=== PATIENT | male | born 1970 | race Caucasian/White ===

== ENCOUNTER 2024-08-01 20:51 | Inpatient (IN) | payer MEDICAID ==
[~2024-08-01] VITALS: Ht 172.7 cm; Wt 95.0 kg
[2024-08-01] MEDS ORDERED: NO HOME MEDS (21:05)
[2024-08-01 21:19] LABS: BASOPHILS % (AUTO) 0.2 % (0-1); EOSINOPHILS % (AUTO) 0 % (0-6); HEMATOCRIT 35.1 % (42.0-52.0); LYMPHOCYTES # (AUTO) 0.8 X10'3 (1.1-4.8); LYMPHOCYTES % (AUTO) 3.7 % (21-51); MEAN CORPUSCULAR HEMOGLOBIN 27.3 PG (27.0-31.0); MEAN CORPUSCULAR HGB CONC 34.2 g/dL (33.0-36.5); MEAN CORPUSCULAR VOLUME 79.8 FL (78-98); MEAN PLATELET VOLUME 7.6 FL (7.4-10.4); MONOCYTES % (AUTO) 9.5 % (2-12); NEUTROPHILS # (AUTO) 18.5 X10'3 (1.8-7.7); NEUTROPHILS % (AUTO) 86.6 % (42-75); PLATELET COUNT 458 X10'3 (140-440); RED CELL DISTRIBUTION WIDTH 13.7 % (11.5-14.5); WHITE BLOOD COUNT 21.4 X10'3 (4.5-11.0)
[2024-08-01] MEDS ORDERED: vancomycin inj 1,000 MG in normal saline 250ml IV soln 250 ML IV ONE (21:25)
[2024-08-01] MEDS: ringers solution, lactated 1000ml IV soln IV ONE (21:33)
[2024-08-01] MEDS: vancomycin/NS 1 GM ADD-VANTAGE 250 ML IV ONE (21:33)
[2024-08-01 21:35] LABS: ABG BASE EXCESS -3.7 mmol/L (-2.0-3.0); ABG HCO3 18.4 mmol/L (21.0-28.0); ABG PH (T) 7.497 (7.350-7.450); ABG PO2 (T) 59.7 mmHg (83.0-108.0); FCOHb 0.4 % (0.5-1.5); FMetHb 0.3 % (0.0-1.5); FO2Hb 92.3 % (94.0-98.0); MODE ROOM AIR; TOTAL HEMOGLOBIN 11.7 G/dl (13.5-17.5)
[2024-08-01] MEDS: normal saline 1000ML IV soln IVB ONE (21:43)
[2024-08-01 21:51] LABS: ALANINE AMINOTRANSFERASE 27 U/L (12-78); ALBUMIN/GLOBULIN RATIO 0.4 (1.1-1.5); ALKALINE PHOSPHATASE 131 IU/L (46-116); ANION GAP 9 (8-16); ASPARTATE AMINO TRANSFERASE 24 U/L (10-37); BILIRUBIN,TOTAL 0.9 MG/DL (0.1-1.0); BLOOD UREA NITROGEN 41 MG/DL (7-18); BUN/CREATININE RATIO 25.6 (10.0-20.0); CALCIUM 8.1 MG/DL (8.5-10.1); CHLORIDE 92 MMOL/L (99-107); POTASSIUM 4.2 MMOL/L (3.5-5.1); PRO BRAIN NATRIURETIC PEPTIDE 1273 PG/ML (0-125); SODIUM 125 MMOL/L (135-145); TOTAL CARBON DIOXIDE 23.9 MMOL/L (24-32); TOTAL PROTEIN 7.5 G/DL (6.4-8.2); eCRCL 52 ML/MIN; eGFR 46 ML/MIN
[2024-08-01 22:11] LABS: GLUCOSE 642 MG/DL (70-104)
[2024-08-01 22:25] LABS: BILIRUBIN,URINE NEGATIVE (Neg); CLARITY,URINE CLOUDY (Clear); COLOR,URINE YELLOW (Yellow); GLUCOSE, URINE >=1000 mg/dl (Neg); KETONES,URINE TRACE mg/dl (Neg); LEUKOCYTE ESTERASE ,URINE SMALL (Neg); NITRITES, URINE NEGATIVE (Neg); OCCULT BLOOD,URINE MODERATE (Neg); PH,URINE 5.5 (4.8-8.0); PROTEIN,URINE TRACE mg/dl (Neg); UROBILINOGEN,URINE 0.2 E.U/dL (0.2-1.0)
[2024-08-01 22:27] LABS: UA COLLECTION TYPE URINAL
[2024-08-01] MEDS ORDERED: iohexol 300mg/ml 100ml inj. ONE (22:28)
[2024-08-01 22:36] LABS: BACTERIA,URINE 4+ /HPF (Neg); SQUAMOUS EPITHELIAL CELL,UR FEW /LPF (FEW); WBC,URINE 50-100 /HPF (0-4); YEAST MANY /HPF (NEGATIVE)
[2024-08-01 23:39] LABS: OSMOLALITY 310 MOSM/K (280-300)
[2024-08-02] MEDS ORDERED: magnesium hydroxide 30ml (MOM) UD suspension PO PRN
[2024-08-02] MEDS ORDERED: magnesium sulf-water 4G/100mL 100 ML IV PRN
[2024-08-02] MEDS ORDERED: magnesium Cl slow-release 64mg tablet PO PRN
[2024-08-02] MEDS ORDERED: morphine 2 MG/ML inj. syringe IV PRN ×2
[2024-08-02] MEDS ORDERED: potassium Cl 40MEQ/1/2NS 520ml 520 ML IV PRN
[2024-08-02] MEDS ORDERED: magnesium sulf-water 2g/50mL 50 ML IV PRN
[2024-08-02] MEDS ORDERED: potassium Cl 20 mEq SR tablet PO PRN
[2024-08-02] MEDS: CefTRIAXone/D5W-Rocephin 1gm 50 ML IV ONE (00:03)
[2024-08-02] MEDS: normal saline 1000ml 1,000 ML IV SCH (00:10)
[2024-08-02] MEDS: acetaminophen 325mg tablet PO PRN (01:18)
[2024-08-02 01:55] LABS: % IRON SATURATION 7 % (11-46); ACETONE SMALL (NEGATIVE); IRON 9 UG/DL (53-167); TOTAL IRON BINDING CAPACITY 137 UG/DL (259-388)
[2024-08-02] MEDS: normal saline 1000ml 1,000 ML IV ONE (02:17)
[2024-08-02] MEDS: insulin regular, human 10 units/0.1 ml syringe IV ONE (02:18)
[2024-08-02 02:32] LABS: C-REACTIVE PROTEIN 34.28 MG/DL (0.0-0.5); FERRITIN 1363 NG/ML (26-388)
[2024-08-02 02:33] LABS: ETHANOL < 10 MG/DL (<10)
[2024-08-02 02:45] LABS: BASOPHILS % (AUTO) 0.1 % (0-1); EOSINOPHILS % (AUTO) 0 % (0-6); HEMATOCRIT 29.4 % (42.0-52.0); HEMOGLOBIN 10.2 g/dl (14.0-17.9); LYMPHOCYTES # (AUTO) 0.6 X10'3 (1.1-4.8); LYMPHOCYTES % (AUTO) 3.5 % (21-51); MEAN CORPUSCULAR HEMOGLOBIN 27.5 PG (27.0-31.0); MEAN CORPUSCULAR HGB CONC 34.7 g/dL (33.0-36.5); MEAN CORPUSCULAR VOLUME 79.3 FL (78-98); MEAN PLATELET VOLUME 7.7 FL (7.4-10.4); MONOCYTES # (AUTO) 0.5 X10'3 (0-0.9); MONOCYTES % (AUTO) 3.1 % (2-12); NEUTROPHILS # (AUTO) 15.6 X10'3 (1.8-7.7); NEUTROPHILS % (AUTO) 93.3 % (42-75); PLATELET COUNT 350 X10'3 (140-440); RED BLOOD COUNT 3.71 X10'6 (4.70-6.10); RED CELL DISTRIBUTION WIDTH 13.8 % (11.5-14.5); WHITE BLOOD COUNT 16.7 X10'3 (4.5-11.0)
[2024-08-02 02:53] LABS: ABG BASE EXCESS -2.7 mmol/L (-2.0-3.0); ABG HCO3 20.2 mmol/L (21.0-28.0); ABG OXYGEN SATURATION 94.8 % (94.0-98.0); ABG PCO2 (T) 28.6 mmHg (35.0-48.0); ABG PH (T) 7.466 (7.350-7.450); ABG PO2 (T) 72.3 mmHg (83.0-108.0); ALLEN'S TEST POSITIVE; FCOHb 0.3 % (0.5-1.5); FHHb 5.2 % (0.0-5.0); FMetHb 0.3 % (0.0-1.5); FO2Hb 94.2 % (94.0-98.0); MODE ROOM AIR; TOTAL HEMOGLOBIN 10.4 G/dl (13.5-17.5)
[2024-08-02 02:54] LABS: HEMOGLOBIN A1C > 12.0 % (4.5-6.2)
[2024-08-02 03:09] LABS: ALBUMIN 1.7 G/DL (3.4-5.0); ALBUMIN/GLOBULIN RATIO 0.4 (1.1-1.5); ANION GAP 10 (8-16); ASPARTATE AMINO TRANSFERASE 23 U/L (10-37); BILIRUBIN,TOTAL 0.7 MG/DL (0.1-1.0); BLOOD UREA NITROGEN 43 MG/DL (7-18); BUN/CREATININE RATIO 28.7 (10.0-20.0); CALCIUM 7.6 MG/DL (8.5-10.1); CHLORIDE 97 MMOL/L (99-107); MAGNESIUM 1.6 MG/DL (1.5-2.4); POTASSIUM 3.4 MMOL/L (3.5-5.1); PRO BRAIN NATRIURETIC PEPTIDE 1587 PG/ML (0-125); SODIUM 130 MMOL/L (135-145); TOTAL CARBON DIOXIDE 23.5 MMOL/L (24-32); TOTAL PROTEIN 6.3 G/DL (6.4-8.2); eCRCL 56 ML/MIN; eGFR 49 ML/MIN
[2024-08-02 03:10] LABS: ALANINE AMINOTRANSFERASE 24 U/L (12-78); ALKALINE PHOSPHATASE 104 IU/L (46-116); HDL CHOLESTEROL 22 MG/DL (35-60); LDL CHOLESTEROL 18 MG/DL (50-100); TRIGLYCERIDES 28 MG/DL (20-135)
[2024-08-02 03:11] LABS: CHOLESTEROL < 50 MG/DL (0-200)
[2024-08-02 03:18] LABS: GLUCOSE 435 MG/DL (70-104)
[2024-08-02] MEDS: potassium Cl 20 mEq SR tablet PO PRN (05:30)
[2024-08-02] MEDS: K and/or MAG REPLACEMENT MC SCH (08:00)
[2024-08-02] MEDS: docusate sod 100mg capsule PO SCH (08:00)
[2024-08-02] MEDS: INSULIN LISPRO 100 UNIT/ML INSULN.PEN MULTI-DOSE SQ SCH (08:01)
[2024-08-02] MEDS: heparin, porcine 5000 units/ml vial SQ SCH (08:01)
[2024-08-02] MEDS: vancomycin/NS 1 GM ADD-VANTAGE 250 ML IV SCH (08:01)
[2024-08-02] MEDS: piperacillin/tazo 3.375gm/50ml 50 ML IV SCH (08:01)
[2024-08-02 08:26] LABS: BILIRUBIN,URINE NEGATIVE (Neg); CLARITY,URINE CLOUDY (Clear); COLOR,URINE YELLOW (Yellow); GLUCOSE, URINE >=1000 mg/dl (Neg); KETONES,URINE TRACE mg/dl (Neg); LEUKOCYTE ESTERASE ,URINE SMALL (Neg); OCCULT BLOOD,URINE LARGE (Neg); PH,URINE 5.5 (4.8-8.0); PROTEIN,URINE 30 mg/dl (Neg); UROBILINOGEN,URINE 0.2 E.U/dL (0.2-1.0)
[2024-08-02 08:34] LABS: UA COLLECTION TYPE CLN CATCH MIDSTREAM
[2024-08-02 08:35] LABS: NITRITES, URINE NEGATIVE (Neg)
[2024-08-02 08:38] LABS: BACTERIA,URINE 2+ /HPF (Neg); WBC,URINE 50-100 /HPF (0-4)
[2024-08-02 08:39] LABS: SQUAMOUS EPITHELIAL CELL,UR FEW /LPF (FEW); YEAST MANY /HPF (NEGATIVE)
[2024-08-02 08:52] LABS: URINE AMPHETAMINE SCREEN POSITIVE (Neg); URINE BARBITUATE SCREEN NEGATIVE (Neg); URINE BENZODIAZEPINES SCREEN NEGATIVE (Neg); URINE CANNABINOID SCREEN NEGATIVE (Neg); URINE COCAINE SCREEN NEGATIVE (Neg); URINE METHADONE SCREEN NEGATIVE (Neg); URINE OPIATE SCREEN NEGATIVE (Neg); URINE PHENCYCLIDINE SCREEN NEGATIVE (Neg)
[2024-08-02] MEDS: LidoCAINE 2% Topical Jelly 11mL syringe (UROJET) TOP ONE (11:16)
[2024-08-02] MEDS: HYDROmorphone inj. 0.5 MG/0.5 ML DISP.SYRIN IV ONE (11:18)
[2024-08-02 15:35] VITALS: BP 115/76; PULSE 125; RESP 14; TEMP 97.3; O2SAT 91
[2024-08-02] MEDS: HYDROmorphone inj. 0.5 MG/0.5 ML DISP.SYRIN IV PRN (16:13)
[2024-08-02 18:00] VITALS: BP 115/76; PULSE 125; RESP 14; TEMP 97.3; O2SAT 91
[2024-08-02 20:00] VITALS: RESP 16; O2SAT 95
[2024-08-02 22:00] VITALS: BP 119/71; PULSE 132; RESP 16; TEMP 102.5; O2SAT 95
[2024-08-02] MEDS: insulin glargine (Lantus) pen - multi-dose SQ SCH (22:24)
[2024-08-02] MEDS: ringers solution, lacted 1,000 ML IV ONE (22:30)
[2024-08-02 23:50] VITALS: TEMP 103
[2024-08-03] VITALS (8 sets, daily range): BP systolic 82–113; BP diastolic 54–70; PULSE 95–102; RESP 14–18; TEMP 98–100.6; O2SAT 91–100
[2024-08-03] MEDS: acetaminophen 1,000mg/100ml IV 100 ML IV ONE (00:22)
[2024-08-03] MEDS: VANCOMYCIN LEVEL IV ONE (07:20)
[2024-08-03 08:13] LABS: BASOPHILS # (AUTO) 0.1 X10'3 (0-0.2); BASOPHILS % (AUTO) 0.4 % (0-1); EOSINOPHILS # (AUTO) 0.1 X10'3 (0-0.9); EOSINOPHILS % (AUTO) 0.4 % (0-6); HEMATOCRIT 25.2 % (42.0-52.0); HEMOGLOBIN 8.5 g/dl (14.0-17.9); LYMPHOCYTES # (AUTO) 1.4 X10'3 (1.1-4.8); MEAN CORPUSCULAR HEMOGLOBIN 27.1 PG (27.0-31.0); MEAN CORPUSCULAR HGB CONC 33.8 g/dL (33.0-36.5); MEAN CORPUSCULAR VOLUME 80.1 FL (78-98); MEAN PLATELET VOLUME 7.9 FL (7.4-10.4); MONOCYTES # (AUTO) 1.5 X10'3 (0-0.9); MONOCYTES % (AUTO) 11.7 % (2-12); NEUTROPHILS # (AUTO) 9.8 X10'3 (1.8-7.7); NEUTROPHILS % (AUTO) 76.5 % (42-75); PLATELET COUNT 355 X10'3 (140-440); RED BLOOD COUNT 3.15 X10'6 (4.70-6.10); RED CELL DISTRIBUTION WIDTH 14.1 % (11.5-14.5); WHITE BLOOD COUNT 12.8 X10'3 (4.5-11.0)
[2024-08-03 08:38] LABS: ALANINE AMINOTRANSFERASE 23 U/L (12-78); ALBUMIN 1.5 G/DL (3.4-5.0); ALBUMIN/GLOBULIN RATIO 0.3 (1.1-1.5); ALKALINE PHOSPHATASE 96 IU/L (46-116); ANION GAP 8 (8-16); ASPARTATE AMINO TRANSFERASE 33 U/L (10-37); BILIRUBIN,TOTAL 0.6 MG/DL (0.1-1.0); BLOOD UREA NITROGEN 46 MG/DL (7-18); BUN/CREATININE RATIO 27.4 (10.0-20.0); CALCIUM 7.7 MG/DL (8.5-10.1); CHLORIDE 104 MMOL/L (99-107); CREATININE 1.68 MG/DL (0.60-1.10); GLUCOSE 128 MG/DL (70-104); POTASSIUM 3.8 MMOL/L (3.5-5.1); SODIUM 135 MMOL/L (135-145); TOTAL CARBON DIOXIDE 22.9 MMOL/L (24-32); TOTAL PROTEIN 6.2 G/DL (6.4-8.2); VANCOMYCIN,TROUGH 18.6 ug/mL (10.0-20.0); eCRCL 50 ML/MIN; eGFR 43 ML/MIN
[2024-08-03] MEDS: INSULIN LISPRO 100 UNIT/ML INSULN.PEN MULTI-DOSE SQ SCH (09:00)
[2024-08-03] MEDS: FLU VACC TS2024-25(6MOS UP)/PF 45 MCG/0.5 ML SYRINGE IMVAC ONE (10:00)
[2024-08-03] MEDS: ringers solution, lacted 1,000 ML IV ONE (18:15)
[2024-08-03] MEDS: mag hydrox/Alum hydrox/simeth 30ml oral suspension PO PRN (19:24)
[2024-08-03] MEDS: normal saline 1000ml 1,000 ML IV ONE ×2 (19:25→19:48)
[2024-08-03] MEDS: Melatonin 3mg tablet PO ONE (21:50)
[2024-08-04] VITALS (26 sets, daily range): BP systolic 95–149; BP diastolic 58–89; PULSE 90–112; RESP 16–39; TEMP 98.7–101.4; O2SAT 93–100
[2024-08-04] MEDS: famotidine 20mg tablet PO ONE (05:27)
[2024-08-04 05:58] LABS: BASOPHILS % (AUTO) 0.1 % (0-1); EOSINOPHILS # (AUTO) 0.1 X10'3 (0-0.9); EOSINOPHILS % (AUTO) 0.4 % (0-6); HEMATOCRIT 25.6 % (42.0-52.0); HEMOGLOBIN 8.5 g/dl (14.0-17.9); LYMPHOCYTES # (AUTO) 1.7 X10'3 (1.1-4.8); LYMPHOCYTES % (AUTO) 10.1 % (21-51); MEAN CORPUSCULAR HEMOGLOBIN 26.6 PG (27.0-31.0); MEAN CORPUSCULAR HGB CONC 33.1 g/dL (33.0-36.5); MEAN CORPUSCULAR VOLUME 80.5 FL (78-98); MEAN PLATELET VOLUME 7.9 FL (7.4-10.4); MONOCYTES # (AUTO) 1.8 X10'3 (0-0.9); MONOCYTES % (AUTO) 10.3 % (2-12); NEUTROPHILS # (AUTO) 13.6 X10'3 (1.8-7.7); NEUTROPHILS % (AUTO) 79.1 % (42-75); PLATELET COUNT 415 X10'3 (140-440); RED BLOOD COUNT 3.18 X10'6 (4.70-6.10); RED CELL DISTRIBUTION WIDTH 14.5 % (11.5-14.5); WHITE BLOOD COUNT 17.2 X10'3 (4.5-11.0)
[2024-08-04 05:59] LABS: ALANINE AMINOTRANSFERASE 20 U/L (12-78); ALBUMIN 1.3 G/DL (3.4-5.0); ALBUMIN/GLOBULIN RATIO 0.3 (1.1-1.5); ALKALINE PHOSPHATASE 99 IU/L (46-116); ANION GAP 8 (8-16); ASPARTATE AMINO TRANSFERASE 27 U/L (10-37); BILIRUBIN,TOTAL 0.5 MG/DL (0.1-1.0); BLOOD UREA NITROGEN 36 MG/DL (7-18); BUN/CREATININE RATIO 27.1 (10.0-20.0); CALCIUM 7.5 MG/DL (8.5-10.1); CHLORIDE 107 MMOL/L (99-107); CREATININE 1.33 MG/DL (0.60-1.10); GLUCOSE 77 MG/DL (70-104); POTASSIUM 3.5 MMOL/L (3.5-5.1); SODIUM 136 MMOL/L (135-145); TOTAL PROTEIN 5.9 G/DL (6.4-8.2); eCRCL 63 ML/MIN; eGFR 56 ML/MIN
[2024-08-04 06:17] LABS: HBSAG SCREEN Negative (Negative); HEP B CORE AB, IGM Negative (Negative); HEP B CORE AB, TOT Negative (Negative); HEP B SURF AB Non Reactive (.)
[2024-08-04] MEDS ORDERED: BUPIVAcaine/PF 2.5mg/ml (0.25%) 10ml vial ONE (06:42)
[2024-08-04] MEDS ORDERED: bacitracin 15gm ointment TP ONE (06:42)
[2024-08-04] MEDS ORDERED: vancomycin 1,000mg inj ONE (06:42)
[2024-08-04] MEDS ORDERED: dextrose 50%-water 50ml dispensing syringe IV PRN (07:15)
[2024-08-04] MEDS ORDERED: glucagon, human recombinant 1mg kit SUBCUT PRN (07:15)
[2024-08-04] MEDS ORDERED: DEXTROSE 15 GM of carb/4 tabs (each vial/BOTTLE has 4 tablets) PO PRN (07:15)
[2024-08-04] MEDS: dextrose 50%-water 50ml dispensing syringe IV PRN (07:21)
[2024-08-04] MEDS: ferrous gluconate 324mg tablet PO SCH (08:00)
[2024-08-04] MEDS: ascorbic acid 500mg tablet PO SCH (08:00)
[2024-08-04] MEDS ORDERED: enalaprilat 1.25mg/ml 2ml vial IV PRN (08:15)
[2024-08-04] MEDS ORDERED: ringers solution, lacted 1,000 ML IV SCH (08:15)
[2024-08-04] MEDS ORDERED: meperidine/PF 25mg/ml syringe IV PRN ×3 (08:15)
[2024-08-04] MEDS ORDERED: morphine 2 MG/ML inj. syringe IV PRN (08:15)
[2024-08-04] MEDS ORDERED: ondansetron/PF 4mg/2ml inj IV PRN (08:15)
[2024-08-04] MEDS ORDERED: morphine 4 MG/ML inj SYRINge IV PRN (08:15)
[2024-08-04] MEDS ORDERED: proCHLORperazine 10 MG/2 ml inj IV PRN (08:15)
[2024-08-04] MEDS ORDERED: labetalol 20mg/4ml (5mg/ml) syringe IV PRN (08:15)
[2024-08-04] MEDS ORDERED: MIDAZolam 1 MG/ML 5ML VIAL ONE (08:18)
[2024-08-04] MEDS ORDERED: fentaNYL/PF 50MCG/1 ML 2ML syringe ONE (08:18)
[2024-08-04 08:19] LABS: C DIFF ANTIGEN NEGATIVE (NEGATIVE); C DIFF SPECIMEN=DIARRHEA? ACCEPTABLE; C DIFFICILE TOXINS A&B NEGATIVE (Neg)
[2024-08-04] MEDS ORDERED: meperidine/PF 100mg/ml syringe IV PRN ×2 (10:15→10:16)
[2024-08-04] MEDS: meperidine/PF 100mg/ml syringe IV PRN (10:22)
[2024-08-04] MEDS: DEXTROSE 15 GM of carb/4 tabs (each vial/BOTTLE has 4 tablets) PO PRN (18:02)
[2024-08-04] MEDS: LORazepam 0.5 MG tablet PO ONE (20:16)
[2024-08-04] MEDS: acetaminophen 1,000mg/100ml IV 100 ML IV ONE (20:24)
[2024-08-05] VITALS: BP 95/60; PULSE 90; RESP 16; TEMP 99.1; O2SAT 98
[2024-08-05 04:00] VITALS: BP 114/70; PULSE 91; RESP 20; TEMP 98; O2SAT 98
[2024-08-05 06:00] VITALS: BP 114/70; PULSE 94; RESP 16; TEMP 98.2; O2SAT 96
[2024-08-05 06:42] LABS: ALANINE AMINOTRANSFERASE 21 U/L (12-78); ALBUMIN 1.3 G/DL (3.4-5.0); ALBUMIN/GLOBULIN RATIO 0.3 (1.1-1.5); ALKALINE PHOSPHATASE 127 IU/L (46-116); ANION GAP 9 (8-16); ASPARTATE AMINO TRANSFERASE 21 U/L (10-37); BILIRUBIN,TOTAL 0.5 MG/DL (0.1-1.0); BLOOD UREA NITROGEN 28 MG/DL (7-18); BUN/CREATININE RATIO 20.7 (10.0-20.0); CALCIUM 7.5 MG/DL (8.5-10.1); CHLORIDE 107 MMOL/L (99-107); CREATININE 1.35 MG/DL (0.60-1.10); GLUCOSE 109 MG/DL (70-104); MAGNESIUM 1.9 MG/DL (1.5-2.4); POTASSIUM 3.1 MMOL/L (3.5-5.1); SODIUM 137 MMOL/L (135-145); TOTAL CARBON DIOXIDE 21.5 MMOL/L (24-32); TOTAL PROTEIN 5.8 G/DL (6.4-8.2); eCRCL 62 ML/MIN; eGFR 55 ML/MIN
[2024-08-05 06:53] LABS: BASOPHILS # (AUTO) 0.1 X10'3 (0-0.2); BASOPHILS % (AUTO) 0.3 % (0-1); EOSINOPHILS # (AUTO) 0.2 X10'3 (0-0.9); HEMATOCRIT 25.2 % (42.0-52.0); HEMOGLOBIN 8.3 g/dl (14.0-17.9); MEAN CORPUSCULAR HEMOGLOBIN 26.8 PG (27.0-31.0); MEAN CORPUSCULAR HGB CONC 32.9 g/dL (33.0-36.5); MEAN CORPUSCULAR VOLUME 81.4 FL (78-98); MEAN PLATELET VOLUME 7.8 FL (7.4-10.4); MONOCYTES # (AUTO) 1.7 X10'3 (0-0.9); MONOCYTES % (AUTO) 10.3 % (2-12); NEUTROPHILS # (AUTO) 12.8 X10'3 (1.8-7.7); NEUTROPHILS % (AUTO) 76.4 % (42-75); PLATELET COUNT 467 X10'3 (140-440); RED CELL DISTRIBUTION WIDTH 14.6 % (11.5-14.5); WHITE BLOOD COUNT 16.8 X10'3 (4.5-11.0)
[2024-08-05] MEDS ORDERED: potassium Cl 20 mEq SR tablet PO PRN (08:20)
[2024-08-05] MEDS ORDERED: potassium Cl 40MEQ/1/2NS 520ml 520 ML IV PRN (08:20)
[2024-08-05] MEDS: potassium Cl 20 mEq SR tablet PO PRN (09:30)
[2024-08-05 10:00] VITALS: BP 126/80; PULSE 105; RESP 13; TEMP 101.6; O2SAT 96
[2024-08-05] MEDS: HYDROcodone/acetaminophen 10/325mg tab PO STA (10:09)
[2024-08-05] MEDS: linezolid 600mg tablet PO SCH (11:29)
[2024-08-05] MEDS: INSULIN LISPRO 100 UNIT/ML INSULN.PEN MULTI-DOSE SQ SCH (13:00)
[2024-08-05 18:40] VITALS: BP 108/74; PULSE 88; RESP 18; TEMP 97.2; O2SAT 92
[2024-08-05] MEDS: HYDROcodone/acetaminophen 10/325mg tab PO PRN (20:44)
[2024-08-05] MEDS ORDERED: insulin glargine (Lantus) pen - multi-dose SQ SCH ×2 (21:00)
[2024-08-05 22:00] VITALS: BP 136/82; PULSE 110; RESP 24; TEMP 101; O2SAT 96
[2024-08-06] VITALS (8 sets, daily range): BP systolic 118–125; BP diastolic 67–87; PULSE 108–114; RESP 16–18; TEMP 98.7–101.8; O2SAT 92–97
[2024-08-06 06:15] LABS: BASOPHILS # (AUTO) 0.2 X10'3 (0-0.2); BASOPHILS % (AUTO) 1.2 % (0-1); EOSINOPHILS # (AUTO) 0.2 X10'3 (0-0.9); EOSINOPHILS % (AUTO) 1.1 % (0-6); HEMATOCRIT 23.5 % (42.0-52.0); HEMOGLOBIN 7.7 g/dl (14.0-17.9); LYMPHOCYTES # (AUTO) 2.7 X10'3 (1.1-4.8); MEAN CORPUSCULAR HEMOGLOBIN 26.5 PG (27.0-31.0); MEAN CORPUSCULAR HGB CONC 32.6 g/dL (33.0-36.5); MEAN CORPUSCULAR VOLUME 81.1 FL (78-98); MEAN PLATELET VOLUME 7.5 FL (7.4-10.4); MONOCYTES # (AUTO) 1.8 X10'3 (0-0.9); MONOCYTES % (AUTO) 10.2 % (2-12); NEUTROPHILS # (AUTO) 13.1 X10'3 (1.8-7.7); NEUTROPHILS % (AUTO) 72.5 % (42-75); PLATELET COUNT 592 X10'3 (140-440); RED CELL DISTRIBUTION WIDTH 14.5 % (11.5-14.5); WHITE BLOOD COUNT 18.1 X10'3 (4.5-11.0)
[2024-08-06 06:28] LABS: ALANINE AMINOTRANSFERASE 17 U/L (12-78); ALBUMIN 1.3 G/DL (3.4-5.0); ALBUMIN/GLOBULIN RATIO 0.3 (1.1-1.5); ALKALINE PHOSPHATASE 145 IU/L (46-116); ANION GAP 8 (8-16); ASPARTATE AMINO TRANSFERASE 20 U/L (10-37); BILIRUBIN,TOTAL 0.4 MG/DL (0.1-1.0); BLOOD UREA NITROGEN 26 MG/DL (7-18); BUN/CREATININE RATIO 23.4 (10.0-20.0); CALCIUM 7.9 MG/DL (8.5-10.1); CHLORIDE 108 MMOL/L (99-107); CREATININE 1.11 MG/DL (0.60-1.10); GLUCOSE 90 MG/DL (70-104); SODIUM 139 MMOL/L (135-145); TOTAL CARBON DIOXIDE 22.9 MMOL/L (24-32); TOTAL PROTEIN 6.4 G/DL (6.4-8.2); eCRCL 75 ML/MIN; eGFR 70 ML/MIN
[2024-08-06] MEDS: CefTRIAXone 2gm/D5W 50ml BAG 50 ML IV SCH (11:24)
[2024-08-06 17:19] LABS: OCCULT BLOOD STOOL POSITIVE (Neg)
[2024-08-06] MEDS: lactose-reduced food (Ensure Enlive) - 237ml bottle PO SCH (18:00)
[2024-08-06] MEDS: pantoprazole 40 MG vial IV SCH (19:07)
[2024-08-06 23:11] LABS: HEMOGLOBIN 7.1 g/dl (14.0-17.9)
[2024-08-06 23:12] LABS: HEMATOCRIT 22.2 % (42.0-52.0); MEAN CORPUSCULAR HGB CONC 32.1 g/dL (33.0-36.5); MEAN CORPUSCULAR VOLUME 81.1 FL (78-98); MEAN PLATELET VOLUME 7.6 FL (7.4-10.4); PLATELET COUNT 681 X10'3 (140-440); RED BLOOD COUNT 2.74 X10'6 (4.70-6.10); RED CELL DISTRIBUTION WIDTH 14.6 % (11.5-14.5); WHITE BLOOD COUNT 22.8 X10'3 (4.5-11.0)
[2024-08-07] VITALS (9 sets, daily range): BP systolic 116–127; BP diastolic 60–79; PULSE 70–125; RESP 16–25; TEMP 98.2–102; O2SAT 93–97
[2024-08-07] MEDS: diphenhydrAMINE 25mg capsule PO ONE (03:04)
[2024-08-07 08:07] LABS: HEMOGLOBIN 7.9 g/dl (14.0-17.9); MEAN CORPUSCULAR HEMOGLOBIN 26.8 PG (27.0-31.0); MEAN CORPUSCULAR HGB CONC 32.7 g/dL (33.0-36.5); MEAN CORPUSCULAR VOLUME 81.7 FL (78-98); MEAN PLATELET VOLUME 6.8 FL (7.4-10.4); PLATELET COUNT 734 X10'3 (140-440); RED BLOOD COUNT 2.94 X10'6 (4.70-6.10); RED CELL DISTRIBUTION WIDTH 14.9 % (11.5-14.5)
[2024-08-07 09:16] LABS: ALANINE AMINOTRANSFERASE 16 U/L (12-78); ALBUMIN 1.2 G/DL (3.4-5.0); ALBUMIN/GLOBULIN RATIO 0.3 (1.1-1.5); ALKALINE PHOSPHATASE 132 IU/L (46-116); ANION GAP 10 (8-16); ASPARTATE AMINO TRANSFERASE 15 U/L (10-37); BILIRUBIN,TOTAL 0.2 MG/DL (0.1-1.0); BLOOD UREA NITROGEN 25 MG/DL (7-18); BUN/CREATININE RATIO 21.9 (10.0-20.0); CALCIUM 7.9 MG/DL (8.5-10.1); CHLORIDE 108 MMOL/L (99-107); CREATININE 1.14 MG/DL (0.60-1.10); GLUCOSE 131 MG/DL (70-104); POTASSIUM 3.9 MMOL/L (3.5-5.1); SODIUM 138 MMOL/L (135-145); TOTAL CARBON DIOXIDE 19.9 MMOL/L (24-32); eCRCL 73 ML/MIN; eGFR 67 ML/MIN
[2024-08-07] MEDS: HYDROmorphone inj. 0.5 MG/0.5 ML DISP.SYRIN IV PRN (09:17)
[2024-08-07] MEDS: pantoprazole 40MG/NS 100ML BAG 100 ML IV SCH (12:34)
[2024-08-07] MEDS: INSULIN LISPRO 100 UNIT/ML INSULN.PEN MULTI-DOSE SQ ONE (18:54)
[2024-08-07 19:29] LABS: HEMATOCRIT 24.6 % (42.0-52.0); MEAN CORPUSCULAR HEMOGLOBIN 26.5 PG (27.0-31.0); MEAN CORPUSCULAR HGB CONC 32.4 g/dL (33.0-36.5); MEAN CORPUSCULAR VOLUME 81.6 FL (78-98); PLATELET COUNT 791 X10'3 (140-440); RED BLOOD COUNT 3.02 X10'6 (4.70-6.10); RED CELL DISTRIBUTION WIDTH 14.9 % (11.5-14.5); WHITE BLOOD COUNT 19.4 X10'3 (4.5-11.0)
[2024-08-07] MEDS: insulin glargine (Lantus) pen - multi-dose SQ SCH (21:47)
[2024-08-08] VITALS (10 sets, daily range): BP systolic 112–129; BP diastolic 75–85; PULSE 101–115; RESP 16–29; TEMP 97.7–99.4; O2SAT 90–99
[2024-08-08 06:02] LABS: BASOPHILS # (AUTO) 0.1 X10'3 (0-0.2); BASOPHILS % (AUTO) 0.3 % (0-1); EOSINOPHILS # (AUTO) 0.3 X10'3 (0-0.9); EOSINOPHILS % (AUTO) 1.4 % (0-6); HEMATOCRIT 23.1 % (42.0-52.0); HEMOGLOBIN 7.7 g/dl (14.0-17.9); LYMPHOCYTES # (AUTO) 2.9 X10'3 (1.1-4.8); MEAN CORPUSCULAR HEMOGLOBIN 27.4 PG (27.0-31.0); MEAN CORPUSCULAR HGB CONC 33.4 g/dL (33.0-36.5); MEAN CORPUSCULAR VOLUME 81.8 FL (78-98); MEAN PLATELET VOLUME 6.9 FL (7.4-10.4); MONOCYTES # (AUTO) 2.3 X10'3 (0-0.9); MONOCYTES % (AUTO) 11.9 % (2-12); NEUTROPHILS # (AUTO) 13.6 X10'3 (1.8-7.7); NEUTROPHILS % (AUTO) 71.4 % (42-75); PLATELET COUNT 856 X10'3 (140-440); RED BLOOD COUNT 2.83 X10'6 (4.70-6.10)
[2024-08-08 06:34] LABS: ALANINE AMINOTRANSFERASE 17 U/L (12-78); ALBUMIN 1.2 G/DL (3.4-5.0); ALBUMIN/GLOBULIN RATIO 0.3 (1.1-1.5); ALKALINE PHOSPHATASE 143 IU/L (46-116); ANION GAP 6 (8-16); ASPARTATE AMINO TRANSFERASE 12 U/L (10-37); BILIRUBIN,TOTAL 0.3 MG/DL (0.1-1.0); BLOOD UREA NITROGEN 14 MG/DL (7-18); BUN/CREATININE RATIO 13.1 (10.0-20.0); CALCIUM 7.7 MG/DL (8.5-10.1); CHLORIDE 109 MMOL/L (99-107); CREATININE 1.07 MG/DL (0.60-1.10); GLUCOSE 272 MG/DL (70-104); POTASSIUM 3.6 MMOL/L (3.5-5.1); SODIUM 140 MMOL/L (135-145); TOTAL CARBON DIOXIDE 24.6 MMOL/L (24-32); eCRCL 78 ML/MIN; eGFR 73 ML/MIN
[2024-08-08] MEDS: ondansetron/PF 4mg/2ml inj IV PRN (11:21)
[2024-08-08] MEDS ORDERED: LIDOcaine 2% Viscous 15ml cup ONE (12:01)
[2024-08-08] MEDS ORDERED: MIDAZolam 1 MG/ML 5ML VIAL ONE (12:29)
[2024-08-08] MEDS ORDERED: fentaNYL/PF 50MCG/1 ML 2ML syringe ONE (12:29)
[2024-08-09 06:00] VITALS: BP 122/69; PULSE 106; RESP 18; TEMP 98.2; O2SAT 98
[2024-08-09 06:15] LABS: BASOPHILS # (AUTO) 0.1 X10'3 (0-0.2); BASOPHILS % (AUTO) 0.4 % (0-1); EOSINOPHILS # (AUTO) 0.2 X10'3 (0-0.9); HEMOGLOBIN 9.1 g/dl (14.0-17.9); MEAN CORPUSCULAR VOLUME 84.3 FL (78-98)
[2024-08-09 06:17] LABS: EOSINOPHILS % (AUTO) 0.9 % (0-6); HEMATOCRIT 28.5 % (42.0-52.0); LYMPHOCYTES % (AUTO) 17.7 % (21-51); MONOCYTES # (AUTO) 1.9 X10'3 (0-0.9); MONOCYTES % (AUTO) 8.5 % (2-12); NEUTROPHILS # (AUTO) 16.4 X10'3 (1.8-7.7); NEUTROPHILS % (AUTO) 72.5 % (42-75); PLATELET COUNT 959 X10'3 (140-440); RED BLOOD COUNT 3.38 X10'6 (4.70-6.10); RED CELL DISTRIBUTION WIDTH 15.2 % (11.5-14.5); WHITE BLOOD COUNT 22.6 X10'3 (4.5-11.0)
[2024-08-09 06:25] LABS: ALKALINE PHOSPHATASE 116 IU/L (46-116); ANION GAP 9 (8-16); BILIRUBIN,TOTAL 0.3 MG/DL (0.1-1.0); BLOOD UREA NITROGEN 10 MG/DL (7-18); BUN/CREATININE RATIO 10.8 (10.0-20.0); CALCIUM 7.8 MG/DL (8.5-10.1); CHLORIDE 108 MMOL/L (99-107); CREATININE 0.93 MG/DL (0.60-1.10); GLUCOSE 165 MG/DL (70-104); POTASSIUM 3.6 MMOL/L (3.5-5.1); SODIUM 139 MMOL/L (135-145); TOTAL PROTEIN 6.4 G/DL (6.4-8.2); eCRCL 90 ML/MIN; eGFR 85 ML/MIN
[2024-08-09 06:51] LABS: ALANINE AMINOTRANSFERASE 11 U/L (12-78); ALBUMIN 1.3 G/DL (3.4-5.0); ALBUMIN/GLOBULIN RATIO 0.3 (1.1-1.5); ASPARTATE AMINO TRANSFERASE 14 U/L (10-37)
[2024-08-09 08:54] VITALS: RESP 18
[2024-08-09 10:00] VITALS: BP 122/69; PULSE 106; RESP 18; TEMP 97.4; O2SAT 99
[2024-08-09 13:00] VITALS: BP 105/73; PULSE 107; RESP 20; TEMP 98.7; O2SAT 94
[2024-08-09] MEDS: ceFAZolin 2gm in dextrose, iso 50 ML IV SCH (15:58)
[2024-08-09] MEDS: ringers solution, lacted 1,000 ML IV ONE (15:59)
[2024-08-09 16:15] LABS: APTT 28 SECONDS (22-32); INR 1.1 INR; PROTHROMBIN TIME 11.5 SECONDS (9.0-12.0)
[2024-08-09] MEDS: NUT.TX.IMPAIRED DIGEST FXN (Ensure Clear) 237 ML PO SCH (18:00)
[2024-08-09] MEDS: pantoprazole 40 MG vial IV SCH (21:55)
[2024-08-10] VITALS (23 sets, daily range): BP systolic 90–124; BP diastolic 51–74; PULSE 74–127; RESP 10–31; TEMP 97.3–99.9; O2SAT 87–99
[2024-08-10 04:04] LABS: EOSINOPHILS # (AUTO) 0.3 X10'3 (0-0.9); MONOCYTES # (AUTO) 1.6 X10'3 (0-0.9); MONOCYTES % (AUTO) 7.2 % (2-12)
[2024-08-10 04:06] LABS: BASOPHILS # (AUTO) 0.1 X10'3 (0-0.2); BASOPHILS % (AUTO) 0.3 % (0-1); EOSINOPHILS % (AUTO) 1.2 % (0-6); HEMATOCRIT 23.7 % (42.0-52.0); HEMOGLOBIN 7.9 g/dl (14.0-17.9); LYMPHOCYTES # (AUTO) 3.3 X10'3 (1.1-4.8); LYMPHOCYTES % (AUTO) 15.1 % (21-51); MEAN CORPUSCULAR HEMOGLOBIN 27.3 PG (27.0-31.0); MEAN CORPUSCULAR HGB CONC 33.3 g/dL (33.0-36.5); MEAN CORPUSCULAR VOLUME 82.2 FL (78-98); MEAN PLATELET VOLUME 6.7 FL (7.4-10.4); NEUTROPHILS # (AUTO) 16.7 X10'3 (1.8-7.7); NEUTROPHILS % (AUTO) 76.2 % (42-75); RED BLOOD COUNT 2.89 X10'6 (4.70-6.10); RED CELL DISTRIBUTION WIDTH 15.2 % (11.5-14.5)
[2024-08-10 04:09] LABS: PLATELET COUNT 1032 X10'3 (140-440)
[2024-08-10 04:15] LABS: ALANINE AMINOTRANSFERASE 11 U/L (12-78); ALBUMIN 1.2 G/DL (3.4-5.0); ALBUMIN/GLOBULIN RATIO 0.3 (1.1-1.5); ALKALINE PHOSPHATASE 91 IU/L (46-116); ASPARTATE AMINO TRANSFERASE 11 U/L (10-37); BILIRUBIN,TOTAL 0.2 MG/DL (0.1-1.0); BLOOD UREA NITROGEN 13 MG/DL (7-18); BUN/CREATININE RATIO 15.3 (10.0-20.0); CALCIUM 7.9 MG/DL (8.5-10.1); CREATININE 0.85 MG/DL (0.60-1.10); GLUCOSE 159 MG/DL (70-104); POTASSIUM 3.5 MMOL/L (3.5-5.1); SODIUM 138 MMOL/L (135-145); TOTAL CARBON DIOXIDE 23.3 MMOL/L (24-32); eCRCL 98 ML/MIN; eGFR > 90 ML/MIN
[2024-08-10 04:20] LABS: ANION GAP 6 (8-16); CHLORIDE 109 MMOL/L (99-107)
[2024-08-10] MEDS: famotidine 20mg tablet PO ONE (06:45)
[2024-08-10] MEDS ORDERED: bacitracin 15gm ointment TP ONE (06:47)
[2024-08-10] MEDS ORDERED: BUPIVAcaine 2.5mg/ml inj 50ml vial (contains preservative) ONE (06:47)
[2024-08-10] MEDS ORDERED: gentamicin 40 MG/1 ML inj ONE (06:47)
[2024-08-10] MEDS ORDERED: Thrombin (Bovine) 5,000 unit vial TP ONE (06:48)
[2024-08-10] MEDS ORDERED: gelatin sponge, absorbable (Gelfoam 100) sponge TP ONE (06:48)
[2024-08-10] MEDS ORDERED: midazolam 1 mg/ML 2ml injection ONE (07:07)
[2024-08-10] MEDS ORDERED: fentaNYL /PF 50mcg/ml 5ml ampule ONE (07:08)
[2024-08-10] MEDS ORDERED: HYDROmorphone/PF 0.2 MG/ML SYRINGE IV PRN ×2 (07:20→11:15)
[2024-08-10] MEDS: ringers solution, lacted 1,000 ML IV SCH (07:20)
[2024-08-10] MEDS ORDERED: labetalol 20mg/4ml (5mg/ml) syringe IV PRN (07:20)
[2024-08-10] MEDS ORDERED: ondansetron/PF 4mg/2ml inj IV PRN (07:20)
[2024-08-10] MEDS ORDERED: hydrALAZINE 20mg/ml inj. IV PRN (07:20)
[2024-08-10] MEDS ORDERED: meperidine/PF 25mg/ml syringe IV PRN ×3 (07:20)
[2024-08-10] MEDS ORDERED: proCHLORperazine 10 MG/2 ml inj IV PRN (07:20)
[2024-08-10] MEDS ORDERED: sevoflurane 250ml liquid IH ONE (07:32)
[2024-08-10] MEDS ORDERED: NORepinephrine 8mg/ 250ml NS 250 ML IV ONE (08:54)
[2024-08-10] MEDS ORDERED: propofol inj 20 ML IV ONE (09:08)
[2024-08-10] MEDS ORDERED: phenylephrine 10mg/ml inj. ONE (09:08)
[2024-08-10] MEDS ORDERED: ceFAZolin 1000mg inj ONE ×2 (09:08)
[2024-08-10] MEDS ORDERED: rocuronium 10mg/ml inj IV ONE ×2 (09:08)
[2024-08-10] MEDS ORDERED: LIDOcaine 2% (20mg/ml) 5ml vial ONE (09:08)
[2024-08-10] MEDS ORDERED: LIDOcaine 1%/PF 5ML 10 MG/ML VIAL ONE (09:09)
[2024-08-10] MEDS: BUPIVAcaine/PF 2.5 mg/ml (0.25%) 30ml vial IJ ONE (09:49)
[2024-08-10] MEDS ORDERED: glycopyrrolate 0.2mg/ml inj ONE (10:07)
[2024-08-10] MEDS ORDERED: neostigmine methylsulfate 1 MG/ML 10ml vial ONE (10:07)
[2024-08-10] MEDS ORDERED: meperidine/PF 100mg/ml syringe IV PRN ×2 (10:21→10:22)
[2024-08-10] MEDS: meperidine/PF 100mg/ml syringe IV PRN (10:30)
[2024-08-10] MEDS: HYDROmorphone/PF 0.2 MG/ML SYRINGE IV PRN (10:42)
[2024-08-10] MEDS: acetaminophen 1,000mg/100ml IV 100 ML IV PRN (11:00)
[2024-08-11] VITALS (8 sets, daily range): BP systolic 105–129; BP diastolic 49–76; PULSE 101–118; RESP 12–24; TEMP 97.8–100.5; O2SAT 95–99
[2024-08-11 05:35] LABS: EOSINOPHILS # (AUTO) 0.1 X10'3 (0-0.9); MONOCYTES # (AUTO) 1.4 X10'3 (0-0.9)
[2024-08-11 05:38] LABS: BASOPHILS % (AUTO) 0.2 % (0-1); EOSINOPHILS % (AUTO) 0.4 % (0-6); LYMPHOCYTES # (AUTO) 2.5 X10'3 (1.1-4.8); LYMPHOCYTES % (AUTO) 11.9 % (21-51); MEAN CORPUSCULAR HEMOGLOBIN 27.2 PG (27.0-31.0); MEAN CORPUSCULAR HGB CONC 33.2 g/dL (33.0-36.5); MEAN PLATELET VOLUME 6.3 FL (7.4-10.4); MONOCYTES % (AUTO) 6.9 % (2-12); NEUTROPHILS # (AUTO) 16.9 X10'3 (1.8-7.7); NEUTROPHILS % (AUTO) 80.6 % (42-75); PLATELET COUNT 904 X10'3 (140-440); RED BLOOD COUNT 2.48 X10'6 (4.70-6.10); RED CELL DISTRIBUTION WIDTH 15.5 % (11.5-14.5)
[2024-08-11 05:53] LABS: HEMOGLOBIN 6.8 g/dl (14.0-17.9)
[2024-08-11 05:54] LABS: HEMATOCRIT 20.4 % (42.0-52.0)
[2024-08-11 06:09] LABS: ALANINE AMINOTRANSFERASE 6 U/L (12-78); ALBUMIN 1.2 G/DL (3.4-5.0); ALBUMIN/GLOBULIN RATIO 0.3 (1.1-1.5); ALKALINE PHOSPHATASE 113 IU/L (46-116); ANION GAP 5 (8-16); ASPARTATE AMINO TRANSFERASE 15 U/L (10-37); BILIRUBIN,TOTAL 0.2 MG/DL (0.1-1.0); BLOOD UREA NITROGEN 8 MG/DL (7-18); BUN/CREATININE RATIO 9.5 (10.0-20.0); CALCIUM 7.3 MG/DL (8.5-10.1); CHLORIDE 109 MMOL/L (99-107); CREATININE 0.84 MG/DL (0.60-1.10); GLUCOSE 171 MG/DL (70-104); SODIUM 139 MMOL/L (135-145); TOTAL CARBON DIOXIDE 25.3 MMOL/L (24-32); TOTAL PROTEIN 5.8 G/DL (6.4-8.2); eCRCL 100 ML/MIN; eGFR > 90 ML/MIN
[2024-08-11] MEDS ORDERED: potassium Cl 40MEQ/1/2NS 520ml 520 ML IV PRN (06:40)
[2024-08-11] MEDS ORDERED: potassium Cl 20 mEq SR tablet PO PRN (06:40)
[2024-08-11] MEDS ORDERED: magnesium sulf-water 4G/100mL 100 ML IV PRN (06:40)
[2024-08-11] MEDS ORDERED: magnesium sulf-water 2g/50mL 50 ML IV PRN (06:40)
[2024-08-11] MEDS: potassium Cl 20 mEq SR tablet PO PRN (07:07)
[2024-08-11] MEDS: K and/or MAG REPLACEMENT MC SCH (08:00)
[2024-08-11 14:13] LABS: HEMATOCRIT 22.1 % (42.0-52.0); HEMOGLOBIN 7.3 g/dl (14.0-17.9); MEAN CORPUSCULAR VOLUME 81.9 FL (78-98)
[2024-08-11 14:14] LABS: PLATELET COUNT 784 X10'3 (140-440); RED CELL DISTRIBUTION WIDTH 15.3 % (11.5-14.5); WHITE BLOOD COUNT 21.3 X10'3 (4.5-11.0)
[2024-08-11 20:18] LABS: MAGNESIUM 1.1 MG/DL (1.5-2.4); POTASSIUM 4.3 MMOL/L (3.5-5.1)
[2024-08-11] MEDS: magnesium Cl slow-release 64mg tablet PO PRN (20:39)
[2024-08-11] MEDS: heparin, porcine 5000 units/ml vial SQ SCH (20:40)
[2024-08-12 06:00] VITALS: BP 114/71; PULSE 91; RESP 18; TEMP 98.2; O2SAT 98
[2024-08-12 08:30] VITALS: RESP 18; O2SAT 98
[2024-08-12 09:41] VITALS: BP 111/60; PULSE 107; RESP 15; TEMP 97.8; O2SAT 97
[2024-08-12] MEDS: lactobacillus rhamnosus 10,000 MMU CELLS/CAPSULE PO SCH (13:04)
[2024-08-12] MEDS: lactose-reduced food (Ensure Enlive) - 237ml bottle PO SCH (13:22)
[2024-08-12 13:36] LABS: BASOPHILS % (AUTO) 0.3 % (0-1); EOSINOPHILS # (AUTO) 0.1 X10'3 (0-0.9); MONOCYTES # (AUTO) 1.1 X10'3 (0-0.9); MONOCYTES % (AUTO) 6.8 % (2-12)
[2024-08-12 13:37] LABS: HEMOGLOBIN 7.2 g/dl (14.0-17.9); MEAN CORPUSCULAR HEMOGLOBIN 26.8 PG (27.0-31.0); MEAN CORPUSCULAR HGB CONC 32.9 g/dL (33.0-36.5); MEAN CORPUSCULAR VOLUME 81.6 FL (78-98); PLATELET COUNT 869 X10'3 (140-440); RED BLOOD COUNT 2.67 X10'6 (4.70-6.10); RED CELL DISTRIBUTION WIDTH 15.3 % (11.5-14.5); WHITE BLOOD COUNT 15.9 X10'3 (4.5-11.0)
[2024-08-12 13:38] LABS: EOSINOPHILS % (AUTO) 0.8 % (0-6); LYMPHOCYTES # (AUTO) 3.1 X10'3 (1.1-4.8); LYMPHOCYTES % (AUTO) 19.4 % (21-51); MEAN PLATELET VOLUME 6.6 FL (7.4-10.4); NEUTROPHILS # (AUTO) 11.6 X10'3 (1.8-7.7); NEUTROPHILS % (AUTO) 72.7 % (42-75)
[2024-08-12 13:40] LABS: HEMATOCRIT 21.8 % (42.0-52.0)
[2024-08-12 13:47] LABS: ALANINE AMINOTRANSFERASE 11 U/L (12-78); ALBUMIN 1.1 G/DL (3.4-5.0); ALBUMIN/GLOBULIN RATIO 0.2 (1.1-1.5); ALKALINE PHOSPHATASE 118 IU/L (46-116); ANION GAP 7 (8-16); ASPARTATE AMINO TRANSFERASE 13 U/L (10-37); BILIRUBIN,TOTAL 0.2 MG/DL (0.1-1.0); BLOOD UREA NITROGEN 7 MG/DL (7-18); BUN/CREATININE RATIO 10.1 (10.0-20.0); CALCIUM 7.1 MG/DL (8.5-10.1); CHLORIDE 103 MMOL/L (99-107); CREATININE 0.69 MG/DL (0.60-1.10); GLUCOSE 175 MG/DL (70-104); MAGNESIUM 1.2 MG/DL (1.5-2.4); POTASSIUM 3.6 MMOL/L (3.5-5.1); SODIUM 137 MMOL/L (135-145); TOTAL CARBON DIOXIDE 26.6 MMOL/L (24-32); TOTAL PROTEIN 5.9 G/DL (6.4-8.2); eCRCL 121 ML/MIN; eGFR > 90 ML/MIN
[2024-08-12 18:00] VITALS: BP 115/71; PULSE 104; RESP 14; TEMP 98.6; O2SAT 95
[2024-08-12 20:00] VITALS: RESP 14; O2SAT 95
[2024-08-12] MEDS: insulin glargine (Lantus) pen - multi-dose SQ SCH (20:09)
[2024-08-12 22:00] VITALS: BP 88/48; PULSE 92; RESP 15; TEMP 98.8; O2SAT 98
[2024-08-12 22:47] LABS: MEAN CORPUSCULAR VOLUME 81.9 FL (78-98); RED CELL DISTRIBUTION WIDTH 14.8 % (11.5-14.5)
[2024-08-12 22:48] LABS: MEAN CORPUSCULAR HEMOGLOBIN 26.3 PG (27.0-31.0); MEAN CORPUSCULAR HGB CONC 32.2 g/dL (33.0-36.5); MEAN PLATELET VOLUME 6.4 FL (7.4-10.4); PLATELET COUNT 882 X10'3 (140-440); RED BLOOD COUNT 2.62 X10'6 (4.70-6.10); WHITE BLOOD COUNT 15.6 X10'3 (4.5-11.0)
[2024-08-12 22:51] LABS: HEMATOCRIT 21.5 % (42.0-52.0); HEMOGLOBIN 6.9 g/dl (14.0-17.9)
[2024-08-13] VITALS (8 sets, daily range): BP systolic 94–131; BP diastolic 57–79; PULSE 91–100; RESP 14–18; TEMP 98.2–99.8; O2SAT 98–100
[2024-08-13 05:51] LABS: EOSINOPHILS # (AUTO) 0.1 X10'3 (0-0.9); EOSINOPHILS % (AUTO) 0.6 % (0-6); LYMPHOCYTES # (AUTO) 2.1 X10'3 (1.1-4.8); LYMPHOCYTES % (AUTO) 14.1 % (21-51); MEAN CORPUSCULAR HGB CONC 33.3 g/dL (33.0-36.5); MEAN PLATELET VOLUME 6.3 FL (7.4-10.4); MONOCYTES % (AUTO) 6.5 % (2-12); WHITE BLOOD COUNT 14.9 X10'3 (4.5-11.0)
[2024-08-13 05:52] LABS: BASOPHILS # (AUTO) 0.1 X10'3 (0-0.2); BASOPHILS % (AUTO) 0.9 % (0-1); HEMATOCRIT 26.7 % (42.0-52.0); HEMOGLOBIN 8.9 g/dl (14.0-17.9); MEAN CORPUSCULAR HEMOGLOBIN 27.6 PG (27.0-31.0); MEAN CORPUSCULAR VOLUME 82.8 FL (78-98); NEUTROPHILS # (AUTO) 11.6 X10'3 (1.8-7.7); NEUTROPHILS % (AUTO) 77.9 % (42-75); PLATELET COUNT 887 X10'3 (140-440); RED BLOOD COUNT 3.23 X10'6 (4.70-6.10); RED CELL DISTRIBUTION WIDTH 15.6 % (11.5-14.5)
[2024-08-13 06:05] LABS: ALANINE AMINOTRANSFERASE 8 U/L (12-78); ALBUMIN 1.2 G/DL (3.4-5.0); ALBUMIN/GLOBULIN RATIO 0.2 (1.1-1.5); ALKALINE PHOSPHATASE 112 IU/L (46-116); ANION GAP 4 (8-16); ASPARTATE AMINO TRANSFERASE 18 U/L (10-37); BILIRUBIN,TOTAL 0.5 MG/DL (0.1-1.0); BLOOD UREA NITROGEN 8 MG/DL (7-18); BUN/CREATININE RATIO 11.8 (10.0-20.0); CALCIUM 7.2 MG/DL (8.5-10.1); CHLORIDE 103 MMOL/L (99-107); CREATININE 0.68 MG/DL (0.60-1.10); GLUCOSE 137 MG/DL (70-104); MAGNESIUM 1.3 MG/DL (1.5-2.4); POTASSIUM 3.7 MMOL/L (3.5-5.1); SODIUM 135 MMOL/L (135-145); TOTAL CARBON DIOXIDE 27.6 MMOL/L (24-32); TOTAL PROTEIN 6.2 G/DL (6.4-8.2); eCRCL 123 ML/MIN; eGFR > 90 ML/MIN
[2024-08-13 18:01] LABS: MEAN CORPUSCULAR HEMOGLOBIN 27.7 PG (27.0-31.0); RED BLOOD COUNT 3.24 X10'6 (4.70-6.10)
[2024-08-13 18:02] LABS: HEMATOCRIT 26.9 % (42.0-52.0); MEAN CORPUSCULAR HGB CONC 33.5 g/dL (33.0-36.5); MEAN CORPUSCULAR VOLUME 82.8 FL (78-98); MEAN PLATELET VOLUME 6.4 FL (7.4-10.4); PLATELET COUNT 943 X10'3 (140-440); RED CELL DISTRIBUTION WIDTH 15.2 % (11.5-14.5)
[2024-08-14] VITALS (7 sets, daily range): BP systolic 94–133; BP diastolic 57–72; PULSE 93–102; RESP 14–18; TEMP 97.6–99.4; O2SAT 95–99
[2024-08-14 06:54] LABS: BASOPHILS # (AUTO) 0.1 X10'3 (0-0.2); EOSINOPHILS # (AUTO) 0.1 X10'3 (0-0.9); HEMOGLOBIN 9.3 g/dl (14.0-17.9); LYMPHOCYTES # (AUTO) 2.2 X10'3 (1.1-4.8); LYMPHOCYTES % (AUTO) 17.7 % (21-51); MEAN CORPUSCULAR HEMOGLOBIN 27.6 PG (27.0-31.0); MONOCYTES # (AUTO) 1.1 X10'3 (0-0.9)
[2024-08-14 07:00] LABS: BASOPHILS % (AUTO) 0.4 % (0-1); HEMATOCRIT 27.9 % (42.0-52.0); MEAN CORPUSCULAR HGB CONC 33.4 g/dL (33.0-36.5); MEAN CORPUSCULAR VOLUME 82.5 FL (78-98); MEAN PLATELET VOLUME 6.6 FL (7.4-10.4); MONOCYTES % (AUTO) 8.7 % (2-12); NEUTROPHILS % (AUTO) 72.2 % (42-75); PLATELET COUNT 934 X10'3 (140-440); RED BLOOD COUNT 3.38 X10'6 (4.70-6.10); RED CELL DISTRIBUTION WIDTH 15.1 % (11.5-14.5); WHITE BLOOD COUNT 12.4 X10'3 (4.5-11.0)
[2024-08-14 07:07] LABS: ALANINE AMINOTRANSFERASE 9 U/L (12-78); ALBUMIN 1.3 G/DL (3.4-5.0); ALBUMIN/GLOBULIN RATIO 0.3 (1.1-1.5); ALKALINE PHOSPHATASE 113 IU/L (46-116); ANION GAP 5 (8-16); ASPARTATE AMINO TRANSFERASE 15 U/L (10-37); BILIRUBIN,TOTAL 0.3 MG/DL (0.1-1.0); BLOOD UREA NITROGEN 8 MG/DL (7-18); BUN/CREATININE RATIO 11.3 (10.0-20.0); CALCIUM 7.4 MG/DL (8.5-10.1); CHLORIDE 104 MMOL/L (99-107); CREATININE 0.71 MG/DL (0.60-1.10); GLUCOSE 169 MG/DL (70-104); MAGNESIUM 1.5 MG/DL (1.5-2.4); POTASSIUM 3.7 MMOL/L (3.5-5.1); SODIUM 136 MMOL/L (135-145); TOTAL CARBON DIOXIDE 26.7 MMOL/L (24-32); TOTAL PROTEIN 6.5 G/DL (6.4-8.2); eCRCL 118 ML/MIN; eGFR > 90 ML/MIN
[2024-08-14] MEDS ORDERED: magnesium sulf-water 4G/100mL 100 ML IV PRN (15:00)
[2024-08-14] MEDS ORDERED: magnesium sulf-water 2g/50mL 50 ML IV PRN (15:00)
[2024-08-14] MEDS ORDERED: potassium Cl 40MEQ/1/2NS 520ml 520 ML IV PRN (15:00)
[2024-08-14] MEDS ORDERED: potassium Cl 20 mEq SR tablet PO PRN ×2 (15:00)
[2024-08-14] MEDS: K and/or MAG REPLACEMENT MC SCH (20:00)
[2024-08-15 03:20] LABS: BASOPHILS # (AUTO) 0.1 X10'3 (0-0.2); EOSINOPHILS # (AUTO) 0.1 X10'3 (0-0.9); MEAN PLATELET VOLUME 6.4 FL (7.4-10.4); MONOCYTES # (AUTO) 1.1 X10'3 (0-0.9)
[2024-08-15 03:22] LABS: BASOPHILS % (AUTO) 0.6 % (0-1); EOSINOPHILS % (AUTO) 0.6 % (0-6); HEMATOCRIT 28.6 % (42.0-52.0); HEMOGLOBIN 9.4 g/dl (14.0-17.9); LYMPHOCYTES # (AUTO) 1.8 X10'3 (1.1-4.8); LYMPHOCYTES % (AUTO) 14.5 % (21-51); MEAN CORPUSCULAR HEMOGLOBIN 27.2 PG (27.0-31.0); MEAN CORPUSCULAR HGB CONC 32.9 g/dL (33.0-36.5); MEAN CORPUSCULAR VOLUME 82.8 FL (78-98); MONOCYTES % (AUTO) 9.3 % (2-12); PLATELET COUNT 929 X10'3 (140-440); RED BLOOD COUNT 3.46 X10'6 (4.70-6.10); RED CELL DISTRIBUTION WIDTH 15.8 % (11.5-14.5); WHITE BLOOD COUNT 12.1 X10'3 (4.5-11.0)
[2024-08-15 03:30] LABS: ALANINE AMINOTRANSFERASE 9 U/L (12-78); ALBUMIN 1.4 G/DL (3.4-5.0); ALBUMIN/GLOBULIN RATIO 0.3 (1.1-1.5); ALKALINE PHOSPHATASE 126 IU/L (46-116); ANION GAP 3 (8-16); ASPARTATE AMINO TRANSFERASE 12 U/L (10-37); BILIRUBIN,TOTAL 0.3 MG/DL (0.1-1.0); BLOOD UREA NITROGEN 9 MG/DL (7-18); BUN/CREATININE RATIO 10.6 (10.0-20.0); CALCIUM 7.6 MG/DL (8.5-10.1); CHLORIDE 103 MMOL/L (99-107); CREATININE 0.85 MG/DL (0.60-1.10); GLUCOSE 223 MG/DL (70-104); MAGNESIUM 1.3 MG/DL (1.5-2.4); POTASSIUM 3.8 MMOL/L (3.5-5.1); SODIUM 134 MMOL/L (135-145); TOTAL PROTEIN 6.9 G/DL (6.4-8.2); eCRCL 98 ML/MIN; eGFR > 90 ML/MIN
[2024-08-15 06:00] VITALS: BP 129/70; RESP 16; TEMP 99; O2SAT 100
[2024-08-15 08:00] VITALS: RESP 16; O2SAT 96
[2024-08-15] MEDS: magnesium Cl slow-release 64mg tablet PO PRN (08:21)
[2024-08-15 10:00] VITALS: BP 107/77; PULSE 110; RESP 16; TEMP 97.9; O2SAT 97
[2024-08-15 18:30] VITALS: BP 124/72; PULSE 105; RESP 17; TEMP 97.7; O2SAT 95
[2024-08-16 06:00] VITALS: BP 113/68; PULSE 62; RESP 16; TEMP 97.8; O2SAT 90
[2024-08-16 06:49] LABS: BASOPHILS # (AUTO) 0.1 X10'3 (0-0.2); BASOPHILS % (AUTO) 0.5 % (0-1); EOSINOPHILS # (AUTO) 0.1 X10'3 (0-0.9); HEMOGLOBIN 9.6 g/dl (14.0-17.9); LYMPHOCYTES # (AUTO) 1.9 X10'3 (1.1-4.8); MONOCYTES # (AUTO) 1.1 X10'3 (0-0.9); MONOCYTES % (AUTO) 8.8 % (2-12); NEUTROPHILS % (AUTO) 74.5 % (42-75)
[2024-08-16 06:51] LABS: EOSINOPHILS % (AUTO) 0.9 % (0-6); HEMATOCRIT 29.1 % (42.0-52.0); LYMPHOCYTES % (AUTO) 15.3 % (21-51); MEAN CORPUSCULAR HEMOGLOBIN 27.2 PG (27.0-31.0); MEAN CORPUSCULAR HGB CONC 32.8 g/dL (33.0-36.5); MEAN CORPUSCULAR VOLUME 82.8 FL (78-98); MEAN PLATELET VOLUME 6.7 FL (7.4-10.4); NEUTROPHILS # (AUTO) 9.3 X10'3 (1.8-7.7); PLATELET COUNT 852 X10'3 (140-440); RED BLOOD COUNT 3.52 X10'6 (4.70-6.10); RED CELL DISTRIBUTION WIDTH 15.6 % (11.5-14.5); WHITE BLOOD COUNT 12.5 X10'3 (4.5-11.0)
[2024-08-16 07:07] LABS: ALANINE AMINOTRANSFERASE 6 U/L (12-78); ALBUMIN 1.4 G/DL (3.4-5.0); ALBUMIN/GLOBULIN RATIO 0.3 (1.1-1.5); ALKALINE PHOSPHATASE 117 IU/L (46-116); ANION GAP 7 (8-16); ASPARTATE AMINO TRANSFERASE 12 U/L (10-37); BILIRUBIN,TOTAL 0.3 MG/DL (0.1-1.0); BLOOD UREA NITROGEN 13 MG/DL (7-18); BUN/CREATININE RATIO 17.3 (10.0-20.0); CALCIUM 7.9 MG/DL (8.5-10.1); CHLORIDE 101 MMOL/L (99-107); CREATININE 0.75 MG/DL (0.60-1.10); GLUCOSE 194 MG/DL (70-104); POTASSIUM 3.9 MMOL/L (3.5-5.1); SODIUM 133 MMOL/L (135-145); TOTAL CARBON DIOXIDE 25.5 MMOL/L (24-32); TOTAL PROTEIN 6.8 G/DL (6.4-8.2); eCRCL 111 ML/MIN; eGFR > 90 ML/MIN
[2024-08-16 10:00] VITALS: BP 127/84; PULSE 92; RESP 17; TEMP 98.4; O2SAT 99
[2024-08-16 11:45] VITALS: RESP 17; O2SAT 99
[2024-08-16 18:30] VITALS: BP 136/82; PULSE 94; RESP 16; TEMP 98.3; O2SAT 93
[2024-08-17] MEDS ORDERED: lactose-reduced food (Ensure Enlive) - 237ml bottle PO SCH (07:30)
== END 2024-08-16 19:20 | disposition left against medical advice (07) | DRG 710 ==
LOC: ER 20:52 → ED HOLD 23:13 → UNDOADMIN 08-02 01:29 → ED HOLD 08-02 01:29 → EDBEDREQ 08-02 14:31 → ORTHO 4S 08-02 15:38
PROVIDERS: ADMIT Internal Medicine Pulmonary Disease; ATTEND Family Medicine
PROC: BP2N1ZZ Computerized Tomography (CT Scan) of Right Hand using Low Osmolar Contrast (ICD-10-PCS; 2024-08-01)
PROC: 3E0T3BZ Introduction of Anesthetic Agent into Peripheral Nerves and Plexi, Percutaneous Approach (ICD-10-PCS; 2024-08-04)
PROC: 0X6S0Z2 Detachment at Right Ring Finger, Mid, Open Approach (ICD-10-PCS; principal; 2024-08-04 08:10)
PROC: 30233N1 Transfusion of Nonautologous Red Blood Cells into Peripheral Vein, Percutaneous Approach (ICD-10-PCS; 2024-08-07)
PROC: 0DB68ZX Excision of Stomach, Via Natural or Artificial Opening Endoscopic, Diagnostic (ICD-10-PCS; 2024-08-08)
PROC: 0DB78ZX Excision of Stomach, Pylorus, Via Natural or Artificial Opening Endoscopic, Diagnostic (ICD-10-PCS; 2024-08-08)
PROC: 00NW0ZZ Release Cervical Spinal Cord, Open Approach (ICD-10-PCS; 2024-08-10)
PROC: 009U0ZZ Drainage of Spinal Canal, Open Approach (ICD-10-PCS; 2024-08-10)
PROC: 02HV33Z Insertion of Infusion Device into Superior Vena Cava, Percutaneous Approach (ICD-10-PCS; 2024-08-14)
PROC: 4A02X4A Measurement of Cardiac Electrical Activity, Guidance, External Approach (ICD-10-PCS; 2024-08-14)
DX: A41.01 Sepsis due to Methicillin susceptible Staphylococcus aureus (principal); N17.0 Acute kidney failure with tubular necrosis; G06.1 Intraspinal abscess and granuloma; G93.41 Metabolic encephalopathy; K29.71 Gastritis, unspecified, with bleeding; K21.01 Gastro-esophageal reflux disease with esophagitis, with bleeding; E87.1 Hypo-osmolality and hyponatremia; E11.51 Type 2 diabetes mellitus with diabetic peripheral angiopathy without gangrene; M86.8X4 Other osteomyelitis, hand; Z20.822 Contact with and (suspected) exposure to COVID-19; D50.9 Iron deficiency anemia, unspecified; E87.8 Other disorders of electrolyte and fluid balance, not elsewhere classified; M46.22 Osteomyelitis of vertebra, cervical region; N39.0 Urinary tract infection, site not specified; E11.69 Type 2 diabetes mellitus with other specified complication; E11.65 Type 2 diabetes mellitus with hyperglycemia; L03.011 Cellulitis of right finger; F15.90 Other stimulant use, unspecified, uncomplicated; K44.9 Diaphragmatic hernia without obstruction or gangrene; Z53.21 Procedure and treatment not carried out due to patient leaving prior to being seen by health care provider; Z89.611 Acquired absence of right leg above knee; Z89.612 Acquired absence of left leg above knee; Z88.5 Allergy status to narcotic agent; Z87.891 Personal history of nicotine dependence
CPT/HCPCS: 36415; 36430; 36569; 36600; 43239; 70200; 71045; 72141; 73110; 73130; 73201; 76942; 80053; 80061; 80202; 80305; 80320; 81001; 82009; 82272; 82570; 82728; 82803; 82948; 82977; 83036; 83540; 83550; 83605; 83735; 83880; 83930; 83935; 84132; 84145; 84300; 84484; 85018; 85025; 85027; 85610; 85651; 85730; 86140; 86704; 86705; 86706; 86885; 86900; 86901; 86920; 87040; 87070; 87075; 87076; 87077; 87081; 87088; 87186; 87207; 87324; 87340; 87449; 87502; 87503; 87811; 93005; 93306; 93930; 93970; 96365; 96375; 97110; 97162; 97164; 97530; 99152; 99285; A4215; A4355; A4615; A4618; A4620; A5200; A6196; A6212; A6213; A6250; A6253; A6258; A6266; A6402; A6446; A6449; A6590; A7000; C1751; C1758; G0378; J0131; J0690; J0696; J1171; J1580; J1644; J1815; J2003; J2175; J2250; J2371; J2405; J2470; J2543; J2704; J2710; J3010; J3370; J3490; J7030; J7040; J7050; J7070; J7120; P9016; Q0163; Q9967